=== PATIENT | female | born 1985 | race Two or more races ===

== ENCOUNTER 2018-08-25 08:59 | Emergency (ER) | payer OTHER ==
[2018-08-25 09:08] VITALS: BP 132/95
--- NOTE | 2018-08-25 09:46 | EDPHY ---
H & P Time Seen by Provider: 08/25/18 09:33 HPI/ROS: CHIEF COMPLAINT: Skin rash HISTORY OF PRESENT ILLNESS: Used a new lotion yesterday and today, started with itchy rash on her thighs bilaterally which is now primarily on her arms and a little bit on the left side of her neck on her chin. The itchy, not painful. Not associated fever or chills, trouble breathing or wheezing, lip tongue or throat swelling, or abdominal discomfort or vomiting. Symptoms mild to moderate. Not better or worse with anything. REVIEW OF SYSTEMS: Eye: no change in vision ENT: no sore throat Cardiac: no chest pain or syncope Pulmonary: no cough or SOB Abdomen: no vomiting, diarrhea, abdominal pain Musculoskeletal: no back pain Skin: HPI Neuro: no headache Constitutional: no fever : no urinary symptoms A comprehensive 10 point review of systems is otherwise negative aside from elements mentioned in the history of present illness. PAST MEDICAL HISTORY: Negative Social history: Tobacco smoker General Appearance: Alert and conversant, cooperative. Eyes: No scleral icterus. ENT, Mouth: Normal mucous membranes. No angioedema. Respiratory: Normal respiratory effort, breath sounds equal, lungs are clear to auscultation. No wheezing and normal voice, no drooling or stridor. Cardiovascular: Regular rate and rhythm. Gastrointestinal: Abdomen is soft and non tender. Neurological: Alert, face symmetric, normal motor and sensory in extremities. Skin: Patient has urticaria on both upper arms and a little bit on her left side of her neck on her chin. None currently on her thighs. No bruising ecchymosis or petechiae. Musculoskeletal: No peripheral edema. Psychiatric: Not agitated. Emergency Department course/MDM: Likely acute allergic urticaria. Does not have evidence of systemic involvement. Benadryl and prednisone discussed and consented. Unlikely to have cellulitis, other skin infection such as fasciitis, anaphylaxis , angioedema. Smoking Status: Current every day smoker Constitutional: Initial Vital Signs Temperature (C) 36.7 C 08/25/18 09:05 Heart Rate 82 08/25/18 09:05 Respiratory Rate 17 08/25/18 09:05 Blood Pressure 132/95 H 08/25/18 09:05 O2 Sat (%) 97 08/25/18 09:05 O2 Delivery Mode Room Air Allergies/Adverse Reactions: No Known Allergies Allergy (Verified 08/25/18 09:05) Home Medications: Medication Instructions Recorded Benadryl 08/25/18 predniSONE [prednisone 20mg (RX)] 20 mg PO Q12 6 Days tab 08/25/18 MDM/Departure - MDM Medications Given: Discontinued Medications Diphenhydramine HCl (Benadryl Injection) 50 mg IVP EDNOW ONE Stop: 08/25/18 09:36 Last Admin: 08/25/18 09:36 Dose: 50 mg Prednisone (Prednisone) 60 mg PO EDNOW ONE Stop: 08/25/18 09:48 Last Admin: 08/25/18 09:54 Dose: 60 mg - Depart Disposition: Home, Routine, Self-Care Clinical Impression: Urticaria Condition: Good Instructions: Urticaria (ED) Additional Instructions: Return for facial tongue or throat swelling, trouble breathing or wheezing, vomiting or abdominal pain. Oral Benadryl 50 mg every 6-8 hours for the next 3 days. Prescriptions: predniSONE [prednisone 20mg (RX)] 20 mg PO Q12 6 Days tab Referrals: Jessie Jules MD [Primary Care Provider] - 5-7 days, call for appt.
[2018-08-25] MEDS ORDERED: predniSONE 20 MG TAB PO ONE (09:47)
== END 2018-08-25 09:54 | disposition home or self-care (01) ==
DX: L50.9 Urticaria, unspecified (principal); F17.200 Nicotine dependence, unspecified, uncomplicated
CPT/HCPCS: 96374; J1200; J7512